=== PATIENT | male | born 1950 | race Caucasian/White ===

== ENCOUNTER 2016-12-17 19:22 | Emergency (ER) | payer OTHER, MEDICARE ==
[2016-12-17 19:35] VITALS: RESP 16
--- NOTE | 2016-12-17 19:40 | EDPHY ---
H & P Time Seen by Provider: 12/17/16 19:24 HPI/ROS: CHIEF COMPLAINT: Syncope or near syncope HISTORY OF PRESENT ILLNESS: This 66-year-old man got home from work today and had several hits off of a Vaporizer of a commercial grade marijuana. This is a new marijuana and stronger than what he has ever used in the past. Afterwards he felt dizzy and lightheaded followed by nausea vomiting and an episode of syncope or near-syncope which was witnessed by his . She was having difficulty finding a pulse at that time but did not see any seizure activity. No trauma was sustained. Episode lasted less than a minute new is brought in by EMS with a chief complaint now nausea and a little bit dizzy. Symptoms severe at home. REVIEW OF SYSTEMS: Eye: no change in vision ENT: no sore throat Cardiac: no chest pain or syncope Pulmonary: no cough or SOB Abdomen: No abdominal pain or diarrhea Musculoskeletal: no back pain Skin: no rash Neuro: no headache Constitutional: no fever : no urinary symptoms A comprehensive 10 point review of systems is otherwise negative aside from elements mentioned in the history of present illness. PAST MEDICAL HISTORY: Possible sleep apnea, on a statin Social history: Marijuana as in HPI General Appearance: Alert and conversant, cooperative. Eyes: No scleral icterus. ENT, Mouth: Normal mucous membranes. No tongue laceration or abrasion. Respiratory: Normal respiratory effort, breath sounds equal, lungs are clear to auscultation. Cardiovascular: Regular rate and rhythm. Gastrointestinal: Abdomen is soft and non tender. Neurological: Alert and oriented x3. Normally conversant. Face symmetric, normal movement and sensation in all extremities. Not acutely tremulous. Skin: Warm and dry, no rashes. Musculoskeletal: No peripheral edema and no joint swelling. Psychiatric: Not agitated. Emergency Department course/MDM: Likely vasovagal from adverse reaction to unusually strong marijuana. I think malignant dysrhythmia is unlikely. Normal saline 1 L and Zofran 4 mg IV for nausea and vomiting. 2215: Ambulatory feels well, wants for discharge, no further nausea. Smoking Status: Never smoked Constitutional: Initial Vital Signs Temperature (C) 36.4 C 12/17/16 19:34 Heart Rate 55 L 12/17/16 19:34 Respiratory Rate 16 12/17/16 19:34 Blood Pressure 107/59 L 12/17/16 19:34 O2 Sat (%) 94 03/29/17 19:34 O2 Delivery Mode Room Air Allergies/Adverse Reactions: No Known Allergies Allergy (Unverified 12/17/16 19:36) Home Medications: Medication Instructions Recorded Simvastatin 12/17/16 Medical Decision Making - Diagnostics EKG Interpretation: 12-lead EKG interpreted by me; official reading is in trace master. My interpretation is sinus bradycardia with QRS 120 and no acute ischemic changes. Differential Diagnosis: Differential diagnosis considered for syncope including but not limited to vasovagal syncope, arrhythmia, dehydration, and blood loss. - Data Points Medications Given: Discontinued Medications Sodium Chloride (Ns) 1,000 mls @ 0 mls/hr IV ONCE ONE PRN Reason: Wide Open Stop: 12/17/16 19:51 Last Admin: 12/17/16 19:55 Dose: 1,000 mls Ondansetron HCl (Zofran) 4 mg IVP EDNOW ONE Stop: 12/17/16 19:51 Last Admin: 12/17/16 19:56 Dose: 4 mg Ondansetron HCl (Zofran) 4 mg IVP EDNOW ONE Stop: 12/17/16 20:26 Last Admin: 12/17/16 20:26 Dose: 4 mg Departure - Departure Disposition: Home, Routine, Self-Care Clinical Impression: Adverse reaction to cannabis Condition: Good Instructions: Syncope (ED) Referrals: Patient,NotPresent [Unknown] - As per Instructions Sanchez Trivedi [Primary Care Provider] - As per Instructions
[2016-12-17] MEDS ORDERED: ONDANSETRON 4 MG/2 ML VIAL ONE (19:44)
[2016-12-17] MEDS ORDERED: ONDANSETRON 4 MG/2 ML VIAL IVP ONE ×2 (19:50→20:25)
[2016-12-17] MEDS ORDERED: NS 1,000 ML IV ONE (19:50)
--- NOTE | 2016-12-17 19:53 | CPEKG ---
Heart Rate: 47 RR Interval: 1277 P-R Interval: 168 QRSD Interval: 120 QT Interval: 500 QTC Interval: 442 P [place]: 55 QRS [place]: 72 T Wave [place]: 36 EKG Severity - ABNORMAL ECG - EKG Impression: SINUS BRADYCARDIA EKG Impression: NONSPECIFIC INTRAVENTRICULAR CONDUCTION DELAY EKG Impression: BORDERLINE INFERIOR Q WAVES Electronically Signed By: Sammy Robledo 17-Dec-2016 20:16:56
[2016-12-17 22:33] VITALS: BP 121/74; PULSE 50; TEMP 98.1; O2SAT 96
== END 2016-12-17 22:33 | disposition home or self-care (01) ==
LOC: EDUNIT#
DX: T40.7X4A Poisoning by cannabis (derivatives), undetermined, initial encounter (principal)
CPT/HCPCS: 93005; 96361; 96374; 99284; J2405